=== PATIENT | female | born 1945 | race Caucasian/White ===

== ENCOUNTER 2018-01-17 16:32 | Emergency (ER) | payer MEDICARE, OTHER ==
[2018-01-17 17:07] VITALS: BP 183/66
--- NOTE | 2018-01-17 17:40 | UC ---
Knee Pain HPI - HPI Summary HPI Summary: 72-year-old female with history of hypertension presents with gradual onset right-sided lateral knee and lateral foot and ankle pain after a fall she suffered approximately 5 days prior. Has noticed gradually worsening pain, mild swelling of the right ankle. Pain reproduced with movement and weightbearing. Denies any recent surgeries or immobilization. Patient has been walking normally. Denies any chest pain shortness of breath. No history of blood clots in the past. Pain is worst in the lateral right ankle along the right lateral malleolus, nonradiating, described as sharp, reproducible with palpation behind the right lateral malleolus. Denies any recent fevers. - History of Current Complaint Chief Complaint: UCLowerExtremity Stated Complaint: RIGHT KNEE PAIN Time Seen by Provider: 01/17/18 17:13 Hx Last Menstrual Period: N/A Pain Intensity: 3 - Allergies/Home Medications Allergies/Adverse Reactions: Allergies Allergy/AdvReac Type Severity Reaction Status Date / Time Penicillins Allergy Severe Rash Verified 01/17/18 17:01 Home Medications: Home Medications Esomeprazole Magnesium [Nexium 24Hr] 20 mg PO DAILY 01/17/18 [History Confirmed 01/17/18] PMH/Surg Hx/FS Hx/Imm Hx - Additional Past Medical History Additional PMH: Hypertension - Surgical History Surgical History: Yes Surgery Procedure, Year, and Place: STENT PLACEMENT X 3. CAROTID ARTERY SX. CHOLECYSTECTOMY. HYSTERECTOMY. RIGHT KNEE SX--[facility] - Family History Known Family History: Positive: Hypertension - Social History Alcohol Use: Rare Substance Use Type: None Smoking Status (MU): Former Smoker Have You Smoked in the Last Year: No When Did the Patient Quit Smoking/Using Tobacco: 2004 - Immunization History Most Recent Influenza Vaccination: 2014 Most Recent Pneumonia Vaccination: 2014 Hx Tetanus, Diphtheria Vaccination: Yes Vaccination Up to Date: Yes Review of Systems Musculoskeletal: Other: - Right-sided knee and ankle and foot pain as described in history of present illness All Other Systems Reviewed And Are Negative: Yes Physical Exam - Summary Physical Exam Summary: Gen: alert, in no acute distress HEENT: EOMI, normocephalic, atruamatic Neck: supple, no masses CV: Normal s1 s2, no murmurs Resp: normal breath sounds b/l GI: no tenderness, no masses Musculoskeletal: normal ROM all 4 extremities. Superficial skin overlying the right lateral knee slightly erythematous and around distribution with central scab overlying superficial abrasion. Round total diameter approximately 5 cm. Diffuse swelling of the ankle with tenderness reproduced with palpation of the right posterior lateral malleolus. Distal neurovascular exam intact, normal strength and sensation of all toes. Normal distal pulses. Skin: no rash Lymph: no lymphadenopathy Psych: appropriate affect, oriented Triage Information Reviewed: Yes Vital Signs: Initial Vital Signs Temp 36.8 C 01/17/18 16:55 Pulse 83 01/17/18 16:55 Resp 16 01/17/18 16:55 BP 183/66 01/17/18 16:55 Pulse Ox 96 01/17/18 16:55 Diagnostics - Radiology x-ray of the knee, ankle, and foot Xray Interpretation: No Acute Changes Radiology Interpretation Completed By: ED Physician, Radiologist Knee Pain Course/Dx - Course Course Of Treatment: X-rays reveal no acute fractures or dislocations, possible questionable developing early cellulitis along the anterior surface of the right knee. Normal range of motion. Instructed to follow up with primary care physician and to report to the emergency department for any worsening or concerning symptoms. Agrees to and understands discharge instructions. - Differential Dx/Diagnosis Provider Diagnoses: Cellulitis. Right ankle pain Discharge - Sign-Out/Discharge Documenting (check all that apply): Patient Departure All imaging exams completed and their final reports reviewed: Yes - Discharge Plan Condition: Stable Disposition: HOME Prescriptions: Cephalexin CAP* [Keflex CAP*] 500 mg PO QID #28 cap Patient Education Materials: Cellulitis (DC) Referrals: Tiffanie Tamayo MD [Primary Care Provider] - Additional Instructions: PLEASE FINISH FULL COURSE OF ANTIBIOTIC PLEASE MAKE AN APPOINTMENT TO BE SEEN BY A PRIMARY CARE DOCTOR WITHIN 1 WEEK PLEASE REPORT TO THE ER FOR ANY WORSENING OR CONCERNING SYMPTOMS - Billing Disposition and Condition Condition: STABLE Disposition: Home
--- NOTE | 2018-01-17 17:48 | RAD ---
Indication: RIGHT foot and knee pain for 5 days post fall. Comparison: No relevant prior exams available on the [facility] for comparison. Technique: AP, lateral, and oblique views RIGHT foot. REPORT AND IMPRESSION: #. Negative for fracture or articular malalignment. #. 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 #. Moderate Achilles tendon insertion and plantar fascia origin bone spurs. #. Diffuse soft tissue swelling.
--- NOTE | 2018-01-17 17:50 | RAD ---
Indication: RIGHT knee pain post fall 5 days ago. Comparison: June 02, 2009 MRI. Technique: RIGHT knee: AP and lateral views. Report: Negative for joint effusion, fracture, or malalignment. Osteoarthritis with moderate medial joint space narrowing and mild partial flattening of the articular surfaces. Peripheral vascular calcifications. Unremarkable soft tissue contours. IMPRESSION: #. No radiographic evidence for traumatic RIGHT knee injury. #. Moderately severe osteoarthritis.
--- NOTE | 2018-01-17 17:56 | RAD ---
INDICATION: Right ankle injury. TECHNIQUE: 3 views of the right ankle were obtained. FINDINGS: There is diffuse soft tissue swelling. The bones are normal alignment. No fracture is seen. IMPRESSION: DIFFUSE SOFT TISSUE SWELLING, NO FRACTURE IS SEEN.
== END 2018-01-17 18:29 | disposition home or self-care (01) ==
LOC: UCCORT 16:32
DX: L03.115 Cellulitis of right lower limb (principal); M25.571 Pain in right ankle and joints of right foot; I10 Essential (primary) hypertension; Z88.0 Allergy status to penicillin; Z87.891 Personal history of nicotine dependence
CPT/HCPCS: 99213; G0463

== ENCOUNTER 2019-02-20 16:57 | Emergency (ER) | payer MEDICARE ==
[2019-02-20 17:10] VITALS: BP 145/51
[2019-02-20] MEDS ORDERED: Aspirin 81 mg CHEW TAB* 81 MG TAB.CHEW PO ONE (17:25)
--- NOTE | 2019-02-20 17:25 | UC ---
Cardiac HPI - HPI Summary HPI Summary: 74 yo female with known CAD presents here with mild/hard to describe SSCP No SOB No n/v/d occasional dizziness no abd pain She has been feeling out of sorts lately with fatigue/ post nasal drip/lassitude - History of Current Complaint Chief Complaint: UCChestPain Stated Complaint: LEFT SIDE COMPLAINT Time Seen by Provider: 02/20/19 17:12 Hx Obtained From: Patient Hx Last Menstrual Period: N/A Onset/Duration: Gradual Onset, Lasting Hours Timing: Constant Initial Severity: Mild Current Severity: Mild Pain Intensity: 1 Chest Pain Location: Mid Sternal - radiates to left infra scapular region Character: Pressure/Squeezing Aggravating Factor(s): Nothing Alleviating Factor(s): Nothing Associated Signs & Symptoms: Positive: Chest Pain, Dizziness. Negative: Vision Changes, Anxiety, Recent Stress, Headaches, Numbness, Tingling, Weakness, SOB, Swelling, Syncope, Fever, Diaphoresis, Nausea/Vomiting, Palpitations, Cough, Hemoptysis, Back Pain, Abdominal Pain, Calf Pain/Swelling - Allergy/Home Medications Allergies/Adverse Reactions: Allergies Allergy/AdvReac Type Severity Reaction Status Date / Time Penicillins Allergy Severe Rash Verified 02/20/19 17:08 Home Medications: Home Medications Aspirin EC TAB* [Ecotrin EC Low Dose 81 MG*] 1 tab DAILY 02/20/19 [History Confirmed 02/20/19] Hydrochlorothiazide TAB* [Hydrodiuril TAB*] 25 mg PO DAILY 02/20/19 [History Confirmed 02/20/19] Pantoprazole TAB * [Protonix TAB*] 1 tab BID 02/20/19 [History Confirmed ] Spironolactone TAB* [Aldactone TAB 25 MG*] 2 tab DAILY 02/20/19 [History Confirmed 02/20/19] Verapamil SR CAP* [Calan Sr CAP*] 1 tab BID 02/20/19 [History Confirmed 02/20/19 ] metFORMIN* [Glucophage 1000 MG TAB *] 1 tab BID 02/20/19 [History Confirmed 07/10] PMH/Surg Hx/FS Hx/Imm Hx Endocrine History: Diabetes, Dyslipidemia Cardiovascular History: Cardiac Disease, Hypertension - Surgical History Surgical History: Yes Surgery Procedure, Year, and Place: STENT PLACEMENT X 3. CAROTID ARTERY SX. CHOLECYSTECTOMY. HYSTERECTOMY. RIGHT KNEE SX--[facility]N [facility]ISCUS - Family History Known Family History: Positive: Cardiac Disease, Hypertension, Diabetes - Social History Alcohol Use: Rare Substance Use Type: None Smoking Status (MU): Former Smoker Have You Smoked in the Last Year: No When Did the Patient Quit Smoking/Using Tobacco: 2004 - Immunization History Most Recent Influenza Vaccination: 2014 Most Recent Pneumonia Vaccination: 2014 Hx Tetanus, Diphtheria Vaccination: Yes Vaccination Up to Date: Yes Review of Systems All Other Systems Reviewed And Are Negative: Yes Constitutional: Positive: Fatigue Skin: Positive: Negative Eyes: Positive: Negative ENT: Positive: Negative Respiratory: Positive: Negative Cardiovascular: Positive: Chest Pain Gastrointestinal: Positive: Negative Genitourinary: Positive: Negative Motor: Positive: Negative Neurovascular: Positive: Negative Musculoskeletal: Positive: Negative Neurological: Positive: Negative Psychological: Positive: Negative Physical Exam Triage Information Reviewed: Yes Appearance: Well-Appearing, No Pain Distress, Well-Nourished Vital Signs: Initial Vital Signs Temp 96.7 F 02/20/19 17:02 Pulse 62 02/20/19 17:02 Resp 16 02/20/19 17:02 BP 145/51 02/20/19 17:02 Pulse Ox 95 02/20/19 17:02 Vital Signs Reviewed: Yes Eyes: Positive: Conjunctiva Clear ENT: Positive: Hearing grossly normal. Negative: Nasal congestion, Nasal drainage, Trismus, Muffled voice, Hoarse voice, Dental tenderness, Sinus tenderness Neck: Positive: Supple, Nontender, No Lymphadenopathy Respiratory: Positive: Lungs clear, Normal breath sounds, No respiratory distress, No accessory muscle use. Negative: Chest non-tender - tender sternum Cardiovascular: Positive: RRR, No Murmur Abdomen Description: Positive: Nontender, No Organomegaly, Soft. Negative: Distended, Guarding Bowel Sounds: Positive: Present Musculoskeletal: Positive: ROM Intact, No Edema Neurological: Positive: Alert Psychological Exam: Normal Skin Exam: Normal Diagnostics - EKG Cardiac Rate: Bradycardia Cardiac Rhythm: Sinus: Normal Ectopy: PACs ST Segment: Normal - Assessment/Plan Course Of Treatment: I advised pt seek evaluation in ER She declines EMS transfer I spoke to Maria Eugenia Youngblood NP Pt to [facility] - Clinical Impression Provider Diagnosis: Chest pain of uncertain etiology Discharge ED - Sign-Out/Discharge Documenting (check all that apply): Patient Departure All imaging exams completed and their final reports reviewed: No Studies - Discharge Plan Condition: Stable Disposition: TRANS HIGHER LVL OF CARE FAC Referrals: Tiffanie Tamayo MD [Medical Doctor] - Additional Instructions: They are expecting you at the ER ([facility]) I spoke to Maria Eugenia Youngblood [employer] ARCHITECT - Billing Disposition and Condition Condition: STABLE Disposition: Trans Higher Lvl of Care Fac
--- OUTSIDE RECORDS SUMMARY | 2019-02-20 17:37 | XMS REPORT | Continuity of Care Document ---
:1945 External Reference #:[id number] Author Name Justine Rooney, MSN, [employer] Address [address] [place] [address] Care Team Providers Name Role Phone Eze Lamas III, MD - Care Team Information Digital Imager [phone] Ophthalmology Jamar Mcduffie MD - Family Medicine Care Team Information Digital Imager Problems Active Problems Provider Date Localized, primary osteoarthritis Jeremiah Santiago MD Onset: 06/08/2011 Note: Document: 01/17/18 - R Knee Xray Peripheral vascular disease Lori Martinez ANP Onset: 08/18/2011 Benign essential hypertension Lori Martinez ANP Onset: 08/18/2011 Chronic pulmonary heart disease Lori Martinez ANP Onset: 08/18/2011 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 Pure hypercholesterolemia Dameon Bauman MD Onset: 09/05/2017 Obesity Lori Martinez ANP Onset: 02/16/2015 Diaphragmatic hernia Fan Girard MD Onset: 02/10/2017 Chronic obstructive lung disease Jamar Mcduffie MD Onset: 09/17/2018 Allergic rhinitis Jamar Mcduffie MD Onset: 09/17/2018 Gastro-esophageal reflux disease with Jamar Mcduffie MD Onset: 09/17/2018 esophagitis Hyperlipidemia Jamar Mcduffie MD Onset: 09/17/2018 Carotid artery occlusion Tez Szymanski M.D., Onset: 01/15/2019 FACC Type II diabetes mellitus uncontrolled Tez Szymanski M.D., Onset: [facility] Social History Type Date Description Comments Sex Unknown Tobacco Use Start: Unknown End: Quit Unknown Cigarette Use Pack Years - 42 Smoking Status Reviewed: 01/15/19 Quit Smokeless Tobacco Never Used Smokeless Tobacco ETOH Use Rarely consumes alcohol Tobacco Use Start: Unknown End: Patient is a former smoker Unknown Recreational Drug Use Denies Drug Use Tobacco Use Start: Unknown Quit 01/2008 Allergies, Adverse Reactions, Alerts Active Allergies Reaction Severity Comments Date Penicillins Hives 06/03/2011 Lisinopril angioedema 10/25/2018 Amlodipine edema and cramps 01/15/2019 Medications Active Medications SIG Qnty Indications Ordering Date Provider Verapamil HCL ER 1 by mouth twice 180caps I10 Rooney, Justine 180mg Caps ER a day Jocelyn, Monse 24HR MSN, [employer] Metformin HCL take one tablet 180tabs E11.65 Jamar Mcduffie, 1000mg Tablets by mouth twice a MD 9 day Incruse Ellipta take 1 puff once 30units Layo Duke, 62.5mcg/Inh daily. 9 Aerosol Spironolactone 2 by mouth every 180tabs Nevin, Justine 25mg Tablets day Monse Banks MSN, [employer] Hydrochlorothiazide 1 by mouth every 90tabs I10 Nessa, 25mg day Monse Bueno M.D., [facility] Accu-Chek Compact Plus as directed to 1units E11.65 Becca Mojica, Care Kit check blood PNP-BC, [employer], 9 Kit sugar one to two Ibclc times a day Accu-Chek Compact Plus to check glucose 102units E11.65 Becca Mojica, Strips one to two times PNP-BC, [employer], 9 a day Ibclc Accu-Chek Fastclix to check sugar 102units E11.65 Becca Mojica, Lancets one to two times PNP-BC, [employer], 9 Misc a day Ibclc Alcohol Prep for use with 100units E11.65 Becca Mojica, 70% Pads glucometer PNP-BC, [employer], 9 Ibclc Atorvastatin Calcium take 1 tablet by 90tabs E78.2 Nessa, 20mg mouth at bedtime Tez Mcguire, 7 Tablets Raphael.DJason, [facility] Nitrostat 1. tab s.l. as 25tabs I25.10 Dameon Bauman, 0.4mg Tablets Sub needed every 5 MD 6 min. Clopidogrel Bisulfate take 1 tablet by 90tabs Dameon Bauman, 75mg mouth once daily MD 5 Tablets Mariangel Aspirin Ec Low Dose 1 tablet daily Unknown 81mg 0 Tablets Pantoprazole Sodium 1 by mouth bid 90tabs Joseph, 40mg Biswarup, MD 0 Tablets Carvedilol 1 by mouth twice 180tabs Becca Mojica, 25mg Tablets a day PNP-BC, [employer], 0 Ibclc Advair HFA inhale 2 puffs 36units Layo Duke, 115-21mcg/Act twice a day MD 0 Aerosol Vitamin B Complex 1 by mouth every Unknown Tablets day 0 Vitamin D 1 by mouth every Unknown 2000Unit Capsules day 0 Ventolin HFA Take 2 puffs 8gm Layo Duke, 108(90Base) every 6 hours as MD 0 mcg/Act Aerosol needed for shortness of breath. History Medications Verapamil HCL ER 1 by mouth 30caps I10 Tez Szymanski 01/15/2019 - 180mg Caps ER every day Landy Mcguire, [facility] 02/12/2019 24HR Spironolactone 1 by mouth 90tabs Tez Szymanski 12/13/2018 - 25mg Tablets every day Landy Mcguire, [facility] 12/27/2018 Amlodipine Besylate 1 by mouth 30tabs I10 Tez Szymanski 12/10/2018 - 10mg every day Landy Mcguire, [facility] 01/15/2019 Tablets Amlodipine Besylate 1 by mouth 30tabs I10 Tez Szymanski 12/06/2018 - 5mg Tablets every day Landy Mcguire, [facility] 12/10/2018 Lisinopril-Hydrochlorothi 1 by mouth 180tabs I10 Becca Mojica, 2018 - azide twice a day PNP-BC, [employer], 11/20/2018 20-12.5mg Tablets Ibclc Hydrochlorothiazide 1 by mouth 30tabs I10 Tez Szymanski 11/02/2018 - 25mg every day Landy Mcguire, [facility] 11/07/2018 Tablets Prednisone Start with 6 21tabs R22.1 Sandhya Stafford, 10/24/2018 - 10mg Tablets tabs po once [employer] Unknown daily and decrease by 1 tab per day until gone. Benzonatate 1 cap by mouth 30caps J44.1 Clune, 10/04/2018 - 100mg Capsules three times a Ashleynifersudarshan, 10/24/2018 day cough [employer] Prednisone start at 6 21tabs J44.1 Clune, 10/04/2018 - 10mg Tablets tabs by mouth Blossomfersudarshan, 10/11/2018 every day and [employer] decrease by one tab each day until gone HM Cetirizine HCL Once daily PO 90tabs J30.89 Layo Duke MD 09/12/2018 - 10mg Tablets 09/17/2018 Immunizations CPT Code Status Date Vaccine Lot # [id number] Given 2018 Influenza Virus Vaccine, Quadrivalent, 36 Mos+, .5ML [id number] Given 02/25/2017 Influenza Virus Vaccine [place] I[place] [id number] Given 11/05/1996 Tetnus Injection Vital Signs Date Vital Result Comment 02/12/2019 11:01am BP Systolic Sitting Right Arm 198 mmHg BP Diastolic Sitting Right Arm 64 mmHg Heart Rate 66 /min Respiratory Rate 18 /min Height 62 inches 5'2" Weight 204.00 lb BMI (Body Mass Index) 37.3 kg/m2 BSA (Body Surface Area) 1.93 m2 [place] body weight in kilograms 50 kg O2 % BldC Oximetry 96 % Ejection Fraction 65% 01/15/2019 9:39am BP Systolic Sitting Left Arm 178 mmHg BP Diastolic Sitting Left Arm 72 mmHg Heart Rate 71 /min Respiratory Rate 20 /min Height 62 inches 5'2" Weight 204.00 lb BMI (Body Mass Index) 37.3 kg/m2 BSA (Body Surface Area) 1.93 m2 [place] body weight in kilograms 50 kg O2 % BldC Oximetry 95 % Results Test Date Facility Test Result H/L Range Note Basic Metabolic 12/20/2018 [facility] Glucose 135 mg/dL High 74-106 1 Panel [address] [place] [id number] [phone] BUN 20 mg/dL High 7-18 Creatinine 0.8 mg/dL Normal 0.6-1.3 Glom Filtration Rate, Estimate >60 mL/min >60 If >60 mL/min >60 2 BUN/Creat 25.0 ratio Sodium 139 mmol/L Normal 136-145 Potassium 3.8 mmol/L Normal 3.5-5.1 Chloride 103 mmol/L Normal 98-107 Carbon Dioxide 29 mmol/L Normal 21-32 Anion Gap 7 mEq/L Low 8-16 Calcium 8.9 mg/dL Normal 8.5-10.1 Basic Metabolic Panel 11/02/2018 [facility] Glucose 138 mg/dL High 74-106 3 [address] [place], [place] [id number] [phone] BUN 18 mg/dL Normal 7-18 Creatinine 0.9 mg/dL Normal 0.6-1.3 Glom Filtration Rate, Estimate >60 mL/min >60 If >60 mL/min >60 4 BUN/Creat 20.0 ratio Sodium 138 mmol/L Normal 136-145 Potassium 4.1 mmol/L Normal 3.5-5.1 Chloride 101 mmol/L Normal 98-107 Carbon Dioxide 31 mmol/L Normal 21-32 Anion Gap 6 mEq/L Low 8-16 Calcium 8.4 mg/dL Low 8.5-10.1 CBC W/Automated 10/26/2018 [facility] White Blood 6.9 K/uL Normal 3.1-10.7 5 Diff [address] [facility] [place] [address] [phone] Red Blood Count 3.88 M/uL Low 3.90-5.40 Hemoglobin 10.6 gm/dL Low 11.6-15.8 Hematocrit 32.1 % Low 36.0-46.1 Mean Cell Volume 82.7 fl Normal 80.9-99.0 Mean Corpuscular HGB 27.3 pg Normal 25.9-32.7 Mean Corpuscular HGB Conc 33.0 g/dL Normal 30.8-34.3 Platelet Count 137 K/uL Low 155-360 Red Cell Distri Width SD 38.7 fl Normal 36-47 Red Cell Distri Width %CV 13.0 % Normal 11.7-14.4 Mean Platelet Volume 9.9 fl Normal 8.9-12.4 Neut% 86.6 % High 40.4-72.8 Lymph % 9.5 % Low 20.0-42.0 [place] % 3.2 % Low 4.3-13.2 Eo% 0.0 % Normal 0.0-6.6 Bas% 0.0 % Normal 0.0-1.1 Immature Grans 0.7 % Normal 0.0-5.0 NRBC % 0.0 /100WBC < 10/ 100 WBC Neut# 5.99 K/uL Normal 1.8-7.0 Lymph # 0.66 K/uL Low 1.0-4.0 [place] # 0.22 K/uL Low 0.3-0.9 Eos # 0.00 K/uL Normal 0.0-0.5 Baso # 0.00 K/uL Normal 0.0-0.1 Immature Grans Absolute 0.05 K/uL NRBC # 0.00 K/uL Basic Metabolic Panel 10/26/2018 [facility] Glucose 247 mg/dL High 74-106 [address] [place] [address] [phone] BUN 18 mg/dL Normal 7-18 Creatinine 1.0 mg/dL Normal 0.6-1.3 Glom Filtration Rate, Estimate 58 mL/min >60 If >60 mL/min >60 6 BUN/Creat 18.0 ratio Sodium 136 mmol/L Normal 136-145 Potassium 3.5 mmol/L Normal 3.5-5.1 Chloride 101 mmol/L Normal 98-107 Carbon Dioxide 27 mmol/L Normal 21-32 Anion Gap 8 mEq/L Normal 8-16 Calcium 7.7 mg/dL Low 8.5-10.1 Glycohemoglobin 10/26/2018 [facility] Glycohemoglobin 7.7 % High 4.2-6.3 [address] (A1c) [place] [address] [phone] eAG 174 mg/dL Laboratory test 10/26/2018 [facility] Lyme Total < 0.91 0.00-0.90 [address] AB/[place] [address] WB [phone] CBC W/Automated 10/25/2018 [facility] White Blood 6.4 K/uL Normal 3.1-10.7 [address] [place], [place] [id number] [phone] Red Blood Count 4.75 M/uL Normal 3.90-5.40 Hemoglobin 13.4 gm/dL Normal 11.6-15.8 Hematocrit 39.3 % Normal 36.0-46.1 Mean Cell Volume 82.7 fl Normal 80.9-99.0 Mean Corpuscular HGB 28.2 pg Normal 25.9-32.7 Mean Corpuscular HGB Conc 34.1 g/dL Normal 30.8-34.3 Platelet Count 143 K/uL Low 155-360 Red Cell Distri Width SD 40.1 fl Normal 36-47 Red Cell Distri Width %CV 13.3 % Normal 11.7-14.4 Mean Platelet Volume 9.7 fl Normal 8.9-12.4 Neut% 86.6 % High 40.4-72.8 Lymph % 10.5 % Low 20.0-42.0 [place] % 2.0 % Low 4.3-13.2 Eo% 0.2 % Normal 0.0-6.6 Bas% 0.2 % Normal 0.0-1.1 Immature Grans 0.5 % Normal 0.0-5.0 NRBC % 0.0 /100WBC < 10/ 100 WBC Neut# 5.55 K/uL Normal 1.8-7.0 Lymph # 0.67 K/uL Low 1.0-4.0 [place] # 0.13 K/uL Low 0.3-0.9 Eos # 0.01 K/uL Normal 0.0-0.5 Baso # 0.01 K/uL Normal 0.0-0.1 Immature Grans Absolute 0.03 K/uL NRBC # 0.00 K/uL Comprehensive Metabolic 10/25/2018 [facility] Glucose 231 mg/dL High 74-[address] [place] [address] [phone] BUN 18 mg/dL Normal 7-18 Creatinine 1.3 mg/dL Normal 0.6-1.3 Glom Filtration Rate, Estimate 43 mL/min >60 If 52 mL/min >60 10 BUN/Creat 13.8 ratio Sodium 131 mmol/L Low 136-145 Potassium 3.9 mmol/L Normal 3.5-5.1 Chloride 94 mmol/L Low 98-107 Carbon Dioxide 28 mmol/L Normal 21-32 Anion Gap 9 mEq/L Normal 8-16 Calcium 8.2 mg/dL Low 8.5-10.1 Total Protein 7.4 g/dL Normal 6.4-8.2 Albumin 3.2 g/dL Low 3.4-5.0 Globulin 4.2 g/dL Normal 1.9-4.3 Alb/Glob 0.8 ratio Bilirubin,Total 0.9 mg/dL Normal 0.2-1.0 Sgot/Ast 15 U/L Normal 15-37 SGPT/Alt 22 U/L Normal 12-78 Alkaline Phosphatase 38 U/L Low 45-117 Laboratory test 10/25/2018 [facility] Lipase 43 U/L Low 56-[address] [place] [address] [phone] CBC W/Automated 10/24/[address] [facility] [address] White Blood 6.2 K/uL Normal 3.1-10.7 [address] [place] [address] [phone] Red Blood Count 4.77 M/uL Normal 3.90-5.40 Hemoglobin 13.1 gm/dL Normal 11.6-15.8 Hematocrit 40.1 % Normal 36.0-46.1 Mean Cell Volume 84.1 fl Normal 80.9-99.0 Mean Corpuscular HGB 27.5 pg Normal 25.9-32.7 Mean Corpuscular HGB Conc 32.7 g/dL Normal 30.8-34.3 Platelet Count 141 K/uL Low 155-360 Red Cell Distri Width SD 41.1 fl Normal 36-47 Red Cell Distri Width %CV 13.4 % Normal 11.7-14.4 Mean Platelet Volume 10.4 fl Normal 8.9-12.4 Neut% 73.0 % High 40.4-72.8 Lymph % 18.5 % Low 20.0-42.0 [place] % 6.7 % Normal 4.3-13.2 Eo% 1.3 % Normal 0.0-6.6 Bas% 0.2 % Normal 0.0-1.1 Immature Grans 0.3 % Normal 0.0-5.0 NRBC % 0.0 /100WBC < 10/ 100 WBC Neut# 4.50 K/uL Normal 1.8-7.0 Lymph # 1.14 K/uL Normal 1.0-4.0 [place] # 0.41 K/uL Normal 0.3-0.9 Eos # 0.08 K/uL Normal 0.0-0.5 Baso # 0.01 K/uL Normal 0.0-0.1 Immature Grans Absolute 0.02 K/uL NRBC # 0.00 K/uL Comprehensive Metabolic 10/24/[address] [facility] [employer] [address] Glucose 120 mg/dL High 74-106 Panel [address] [place] [address] [phone] BUN 14 mg/dL Normal 7-18 Creatinine 1.1 mg/dL Normal 0.6-1.3 Glom Filtration Rate, Estimate 52 mL/min >60 If >60 mL/min >60 12 BUN/Creat 12.7 ratio Sodium 135 mmol/L Low 136-145 Potassium 3.5 mmol/L Normal 3.5-5.1 Chloride 96 mmol/L Low 98-107 Carbon Dioxide 29 mmol/L Normal 21-32 Anion Gap 10 mEq/L Normal 8-16 Calcium 8.3 mg/dL Low 8.5-10.1 Total Protein 7.3 g/dL Normal 6.4-8.2 Albumin 3.3 g/dL Low 3.4-5.0 Globulin 4.0 g/dL Normal 1.9-4.3 Alb/Glob 0.8 ratio Bilirubin,Total 0.7 mg/dL Normal 0.2-1.0 Sgot/Ast 16 U/L Normal 15-37 SGPT/Alt 22 U/L Normal 12-78 Alkaline Phosphatase 37 U/L Low 45-117 LDL Cholesterol 09/17/[address] Cholesterol 158 mg/dL <200 13, 14 [address] [place] [address] [phone] Triglycerides 82 mg/dL <150 15 HDL Cholesterol 56 mg/dL >40 16 LDL-Cholesterol 86 mg/dL < 100 17 Laboratory test 09/09/2018 [facility] Troponin-I < 0.015 18, [address] ng/mL [place], [place] [id number] [phone] Basic Metabolic 09/09/2018 [facility] Glucose 128 mg/dL High 74-[address] [place] [address] [phone] BUN 18 mg/dL Normal 7-18 Creatinine 0.9 mg/dL Normal 0.6-1.3 Glom Filtration Rate, Estimate >60 mL/min >60 If >60 mL/min >60 20 BUN/Creat 20.0 ratio Sodium 136 mmol/L Normal 136-145 Potassium 3.5 mmol/L Normal 3.5-5.1 Chloride 99 mmol/L Normal 98-107 Carbon Dioxide 30 mmol/L Normal 21-32 Anion Gap 7 mEq/L Low 8-16 Calcium 8.7 mg/dL Normal 8.5-10.1 CBC W/Automated 09/09/2018 [facility] White Blood 6.2 K/uL Normal 3.1-10.[address] [place] [address] [phone] Red Blood Count 4.29 M/uL Normal 3.90-5.40 Hemoglobin 11.9 gm/dL Normal 11.6-15.8 Hematocrit 36.0 % Normal 36.0-46.1 Mean Cell Volume 83.9 fl Normal 80.9-99.0 Mean Corpuscular HGB 27.7 pg Normal 25.9-32.7 Mean Corpuscular HGB Conc 33.1 g/dL Normal 30.8-34.3 Platelet Count 135 K/uL Low 155-360 Red Cell Distri Width SD 41.7 fl Normal 36-47 Red Cell Distri Width %CV 13.6 % Normal 11.7-14.4 Mean Platelet Volume 10.3 fl Normal 8.9-12.4 Neut% 60.1 % Normal 40.4-72.8 Lymph % 28.0 % Normal 20.0-42.0 [place] % 8.8 % Normal 4.3-13.2 Eo% 2.3 % Normal 0.0-6.6 Bas% 0.5 % Normal 0.0-1.1 Immature Grans 0.3 % Normal 0.0-5.0 NRBC % 0.0 /100WBC < 10/ 100 WBC Neut# 3.74 K/uL Normal 1.8-7.0 Lymph # 1.74 K/uL Normal 1.0-4.0 [place] # 0.55 K/uL Normal 0.3-0.9 Eos # 0.14 K/uL Normal 0.0-0.5 Baso # 0.03 K/uL Normal 0.0-0.1 Immature Grans Absolute 0.02 K/uL NRBC # 0.00 K/uL Laboratory test 09/09/2018 [facility] Troponin-I < 0.015 [address] ng/[place] [address] [phone] Comprehensive 09/08/2018 [facility] Glucose 132 mg/dL High 74-106 Metabolic Panel [address] [place] [address] [phone] BUN 18 mg/dL Normal 7-18 Creatinine 1.1 mg/dL Normal 0.6-1.3 Glom Filtration Rate, Estimate 52 mL/min >60 If >60 mL/min >60 22 BUN/Creat 16.3 ratio Sodium 136 mmol/L Normal 136-145 Potassium 3.7 mmol/L Normal 3.5-5.1 Chloride 98 mmol/L Normal 98-107 Carbon Dioxide 30 mmol/L Normal 21-32 Anion Gap 8 mEq/L Normal 8-16 Calcium 8.7 mg/dL Normal 8.5-10.1 Total Protein 7.9 g/dL Normal 6.4-8.2 Albumin 3.7 g/dL Normal 3.4-5.0 Globulin 4.2 g/dL Normal 1.9-4.3 Alb/Glob 0.9 ratio Bilirubin,Total 0.8 mg/dL Normal 0.2-1.0 Sgot/Ast 21 U/L Normal 15-37 SGPT/Alt 25 U/L Normal 12-78 Alkaline Phosphatase 44 U/L Low 45-117 Laboratory test finding 09/08/2018 [facility] Lipase 76 U/L Normal 56-[address] [place] [address] [phone] Troponin-I < 0.015 ng/mL 23 CBC W/Automated 09/08/2018 [facility] White Blood 6.8 K/uL Normal 3.1-10.7 Diff [address] [place] [address] [phone] Red Blood Count 4.66 M/uL Normal 3.90-5.40 Hemoglobin 13.1 gm/dL Normal 11.6-15.8 Hematocrit 39.0 % Normal 36.0-46.1 Mean Cell Volume 83.7 fl Normal 80.9-99.0 Mean Corpuscular HGB 28.1 pg Normal 25.9-32.7 Mean Corpuscular HGB Conc 33.6 g/dL Normal 30.8-34.3 Platelet Count 164 K/uL Normal 155-360 Red Cell Distri Width SD 41.3 fl Normal 36-47 Red Cell Distri Width %CV 13.7 % Normal 11.7-14.4 Mean Platelet Volume 9.7 fl Normal 8.9-12.4 Neut% 64.3 % Normal 40.4-72.8 Lymph % 24.9 % Normal 20.0-42.0 [place] % 8.0 % Normal 4.3-13.2 Eo% 1.8 % Normal 0.0-6.6 Bas% 0.4 % Normal 0.0-1.1 Immature Grans 0.6 % Normal 0.0-5.0 NRBC % 0.0 /100WBC < 10/ 100 WBC Neut# 4.36 K/uL Normal 1.8-7.0 Lymph # 1.69 K/uL Normal 1.0-4.0 [place] # 0.54 K/uL Normal 0.3-0.9 Eos # 0.12 K/uL Normal 0.0-0.5 Baso # 0.03 K/uL Normal 0.0-0.1 Immature Grans Absolute 0.04 K/uL NRBC # 0.00 K/uL Aot Request 09/08/2018 [facility] Aot Request Test(s) added [address] [place] [address] [phone] Tests to be added: lipase Laboratory test finding 09/08/2018 [facility] Troponin-I < 0.015 ng/mL [address] [place] [address] [phone] 1 I10 2 Note: Persistent reduction for 3 months or more in an eGFR <60 mL/min/1.73 m2 defines CKD. Patients with eGFR values >/=60 mL/min/1.73 m2 may also have CKD if evidence of persistent proteinuria is present. The original MDRD equation for estimated GFR is not valid for patients less than 18 years of age. Additional information may be found at www.[email or web address]. 3 I10 [id number] 4 Note: Persistent reduction for 3 months or more in an eGFR <60 mL/min/1.73 m2 defines CKD. Patients with eGFR values >/=60 mL/min/1.73 m2 may also have CKD if evidence of persistent proteinuria is present. The original MDRD equation for estimated GFR is not valid for patients less than 18 years of age. Additional information may be found at www.[email or web address]. 5 ANGIOEDEMA 6 Note: Persistent reduction for 3 months or more in an eGFR <60 mL/min/1.73 m2 defines CKD. Patients with eGFR values >/=60 mL/min/1.73 m2 may also have CKD if evidence of persistent proteinuria is present. The original MDRD equation for estimated GFR is not valid for patients less than 18 years of age. Additional information may be found at www.kdoqi.org. 7 Elevated levels of HbA1c suggest the need for more aggressive treatment of glycemia. The [place] [employer] recommends that a primary goal of therapy should be a HbA1c of <7% and that physicians should re-evaluate the treatment regimen in patients with HbA1c values consistently >8%. 8 Negative <0.91 Equivocal 0.91 - 1.09 Positive >1.09 Performed at: RN - [facility] [address] [id number] Phlebotomy Manager: Corrina Palma MD, Phone: [phone] LIPS AND TONGUE SWELLING AND RASH 10 Note: Persistent reduction for 3 months or more in an eGFR <60 mL/min/1.73 m2 defines CKD. Patients with eGFR values >/=60 mL/min/1.73 m2 may also have CKD if evidence of persistent proteinuria is present. The original MDRD equation for estimated GFR is not valid for patients less than 18 years of age. Additional information may be found at www.kdoqi.org. 11 R11.281 12 Note: Persistent reduction for 3 months or more in an eGFR <60 mL/min/1.73 m2 defines CKD. Patients with eGFR values >/=60 mL/min/1.73 m2 may also have CKD if evidence of persistent proteinuria is present. The original MDRD equation for estimated GFR is not valid for patients less than 18 years of age. Additional information may be found at www.kdoqi.org. 13 E78.5 14 Reference Guidelines*: Desirable: ........... < 200 mg/dL Borderline High: ..... 200-239 mg/dL High: ................ >= 240 mg/dL * The National Cholesterol Education Program (NCEP) 15 Reference Guidelines*: Normal: ............. < 150 mg/dL Borderline High: .... 150-199 mg/dL High: ............... 200-499 mg/dL Very High: .......... > 500 mg/dL * Source: National Cholesterol Education Program (NCEP) 16 Reference Guidelines*: Low HDL: ..... < 40 mg/dL Normal: ..... 40-60 mg/dL Desirable: ... > 60 mg/dL *The National Cholesterol Education Program(NCEP) 17 Reference Guidelines*: Optimal:........... <100 mg/dL Near Optimal....... 100-129 mg/dL Borderline High.... 130-159 mg/dL High............... 160-189 mg/dL Very High.......... >=190 mg/dL * Source: National Cholesterol Education Program (NCEP) 18 CHEST PAIN 19 0.0 - 0.045 ng/mL: Normal 0.046 - 0.5 ng/mL: Suggestive 0.6 - 1.5 ng/mL: Consistent 20 Note: Persistent reduction for 3 months or more in an eGFR <60 mL/min/1.73 m2 defines CKD. Patients with eGFR values >/=60 mL/min/1.73 m2 may also have CKD if evidence of persistent proteinuria is present. The original MDRD equation for estimated GFR is not valid for patients less than 18 years of age. Additional information may be found at www.kdoqi.org. 21 0.0 - 0.045 ng/mL: Normal 0.046 - 0.5 ng/mL: Suggestive 0.6 - 1.5 ng/mL: Consistent 22 Note: Persistent reduction for 3 months or more in an eGFR <60 mL/min/1.73 m2 defines CKD. Patients with eGFR values >/=60 mL/min/1.73 m2 may also have CKD if evidence of persistent proteinuria is present. The original MDRD equation for estimated GFR is not valid for patients less than 18 years of age. Additional information may be found at www.kdoqi.org. 23 0.0 - 0.045 ng/mL: Normal 0.046 - 0.5 ng/mL: Suggestive 0.6 - 1.5 ng/mL: Consistent 24 Tests: lipase Instructions: 25 0.0 - 0.045 ng/mL: Normal 0.046 - 0.5 ng/mL: Suggestive 0.6 - 1.5 ng/mL: Consistent Procedures Date Code Description Status 01/02/2019 65205 Echocardiogram Complete Completed 12/06/2018 52492 EKG-Tracing And Report Completed 10/02/2018 07414 Spirometry Completed 09/09/2018 56424 EKG Interpretation And Report Only Completed 09/09/2018 37274 EKG Interpretation And Report Only Completed 08/01/2017 [id number] Mammogram Completed 08/01/2016 [id number] Bone Mineral Density Test Completed 11/01/2013 [id number] Mammogram Completed 09/10/2012 [id number] Colonoscopy Completed 07/18/2005 [id number] Colonoscopy Completed 03/15/2002 [id number] Colonoscopy Completed Medical Devices Description No Information Available Encounters Type Date Location Provider Dx Diagnosis Office Visit 02/12/2019 Cardiology Office Justine Rooney I25.10 Athscl heart 11:00a Jocelyn, FATEMEH, disease of [place] [employer] coronary artery w/o ang pctrs E78.5 Hyperlipidemia, unspecified I10 Essential (primary) hypertension I65.23 Occlusion and stenosis of bilateral carotid arteries Office Visit 01/15/2019 9:40a Cardiology Office Tez Szymanski I10 Essential Landy Mcguire, FACC (primary) hypertension E11.65 Type 2 diabetes mellitus with hyperglycemia I25.10 Athscl heart disease of [place] coronary artery w/o ang pctrs E78.5 Hyperlipidemia, unspecified I65.23 Occlusion and stenosis of bilateral carotid arteries Office Visit 01/15/2019 8:30a Family Medicine Jamar Mcduffie, I10 Essential (primary) iPllo REGALADO MD hypertension I25.10 Athscl heart disease of [place] coronary artery w/o ang pctrs E78.5 Hyperlipidemia, unspecified E11.65 Type 2 diabetes mellitus with hyperglycemia Office Visit 12/27/2018 10:00a Cardiology Office Kevon, I10 Essential ( primary) Marlyss B., PA hypertension Office Visit 12/18/2018 10:00a Cardiology Office [place], I10 Essential ( primary) Marlyss B., PA hypertension I25.10 Athscl heart disease of [place] coronary artery w/o ang pctrs I65.23 Occlusion and stenosis of bilateral carotid arteries E78.5 Hyperlipidemia, unspecified Office Visit 12/06/2018 1:05p Cardiology Office [place]evon, I10 Essential ( primary) Marlyss B., PA hypertension I25.10 Athscl heart disease of [place] coronary artery w/o ang pctrs I65.23 Occlusion and stenosis of bilateral carotid arteries E78.5 Hyperlipidemia, unspecified Office Visit 11/20/2018 2:20p Cardiology Office [place], I10 Essential ( primary) Marlyss B., PA hypertension I25.10 Athscl heart disease of [place] coronary artery w/o ang pctrs I65.23 Occlusion and stenosis of bilateral carotid arteries E78.5 Hyperlipidemia, unspecified I73.9 Peripheral vascular disease, unspecified Office Visit 11/07/2018 9:30a Family Medicine Becca Mojica, E11.65 [address] PNP-BC, [employer], mellitus with Ibclc hyperglycemia I10 Essential (primary) hypertension E78.5 Hyperlipidemia, unspecified Office Visit 11/02/2018 9:20a Cardiology Office Kevon, 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 B., 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 I10 Essential (primary) hypertension E78.5 Hyperlipidemia, unspecified I65.23 Occlusion and stenosis of bilateral carotid arteries I73.9 Peripheral vascular disease, unspecified Office Visit 10/24/2018 2:00p Family Medicine Sandhya Stafford, R10.[address] [employer] abdominal tenderness R22.1 Localized swelling, mass and lump, neck R05 Cough Office Visit 10/04/2018 Family David, J44.1 Chronic 9:00a Medicine [place] Verasudarshan, [employer] obstructive RD pulmonary disease w (acute) exacerbation J30.89 Other allergic rhinitis Office Visit 09/17/2018 9:30a Family Jamar Mcduffie, K21.0 Gastro-esophageal Medicine Pillo MAXWELL reflux disease with RD esophagitis J30.89 Other allergic rhinitis J44.9 Chronic obstructive pulmonary disease, unspecified I10 Essential (primary) hypertension E78.5 Hyperlipidemia, unspecified Office Visit 09/12/2018 9:00a Pulmonology MataSylvia friedman, J44.9 Chronic obstructive PA pulmonary disease, unspecified G47.33 Obstructive sleep apnea (adult) (pediatric) J30.89 Other allergic rhinitis K21.0 Gastro-esophageal reflux disease with esophagitis F17.211 Nicotine dependence, cigarettes, in remission Z68.38 Body mass index (BMI) 38.0-38.9, adult Assessments Date Code Description Provider 02/12/2019 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, MSN, [place] coronary artery without angina [employer] pectoris 02/12/2019 E78.5 Hyperlipidemia, unspecified Justine Rooney, MSN, [facility] 02/12/2019 I10 Essential (primary) hypertension Justine Rooney, MSN, [facility] 02/12/2019 I65.23 Occlusion and stenosis of bilateral Justine Rooney , FATEMEH, carotid arteries [facility] 01/15/2019 I10 Essential (primary) hypertension Tez Szymanski M.D., [facility] 01/15/2019 I10 Essential (primary) hypertension Jamar Mcduffie MD 01/15/2019 E11.65 Type 2 diabetes mellitus with Tez Szymanski M.D., hyperglycemia [facility] 01/15/2019 I25.10 Atherosclerotic heart disease of Jamar Mcduffie MD [place] coronary artery without angina pectoris 01/15/2019 E78.5 Hyperlipidemia, unspecified Jamar Mcduffie MD 01/15/2019 I25.10 Atherosclerotic heart disease of Tez Szymanski M.D. , [place] coronary artery without angina FAC pectoris 01/15/2019 E78.5 Hyperlipidemia, unspecified Tez Szymanski M.D., [facility] 01/15/2019 E11.65 Type 2 diabetes mellitus with Jamar Mcduffie MD hyperglycemia 01/15/2019 I65.23 Occlusion and stenosis of bilateral Tez Szymanski M.D., carotid arteries [facility] 01/02/2019 I25.10 Atherosclerotic heart disease of Dameon Bauman MD [place] coronary artery without angina pectoris 12/27/2018 I10 Essential (primary) hypertension Tez Szymanski M.D., [facility] 12/27/2018 I10 Essential (primary) hypertension Kevon, Marlyss B., PA 12/18/2018 I10 Essential (primary) hypertension Kevon, Marlyss B., PA 12/18/2018 I25.10 Atherosclerotic heart disease of Kevon, Marlyss B., PA [place] coronary artery with 12/18/2018 I65.23 Occlusion and stenosis of bilateral Kevon, Marlyss B., PA carotid arteries 12/18/2018 E78.5 Hyperlipidemia, unspecified Kevon, Marlyss B., PA 12/06/2018 I10 Essential (primary) hypertension Kevon, Marlyss B., PA 12/06/2018 I25.10 Atherosclerotic heart disease of Kevon, Marlyss B., PA [place] coronary artery with 12/06/2018 I65.23 Occlusion and stenosis of bilateral Kevon, Marlyss B., PA carotid arteries 12/06/2018 E78.5 Hyperlipidemia, unspecified Kevon, Marlyss B., PA 11/20/2018 I10 Essential (primary) hypertension Kevon, Marlyss B., PA 11/20/2018 I25.10 Atherosclerotic heart disease of Kevon, Marlyss B., PA [place] coronary artery with 11/20/2018 I65.23 Occlusion and stenosis of bilateral Kevon, Marlyss B., PA carotid arteries 11/20/2018 E78.5 Hyperlipidemia, unspecified Kevon, Marlyss B., PA 11/20/2018 I73.9 Peripheral vascular disease, Kevon, Marlyss B., PA unspecified 11/07/2018 E11.65 Type 2 diabetes mellitus with Becca Mojica, PNP-BC, [employer], hyperglycemia Ibclc 11/07/2018 I10 Essential (primary) hypertension Becca Mojica PNP-BC, [employer], Ibclc 11/07/2018 E78.5 Hyperlipidemia, unspecified Becca Mojica PNP-BC, [employer], Ibclc 11/02/2018 I25.10 Atherosclerotic heart disease of Kevon, Marlyss B., PA [place] coronary artery with 11/02/2018 I10 Essential (primary) hypertension Kevon Marlyss B., PA 11/02/2018 E78.5 Hyperlipidemia, unspecified Kevon, Marlyss B., PA 11/02/2018 I65.23 Occlusion and stenosis of bilateral Kevon, Marlyss B., PA carotid arteries 11/02/2018 I73.9 Peripheral vascular disease, Kevon Marlyss B., PA unspecified 10/26/2018 T78.3xxA Angioneurotic edema, initial Babs Serna, [employer] encounter 10/26/2018 T78.40xA Allergy, unspecified, initial Babs Serna [employer] encounter 10/26/2018 R73.9 Hyperglycemia, unspecified Babs Serna, [employer] 10/26/2018 I25.10 Atherosclerotic heart disease of Babs Serna NP [place] coronary artery without angina pectoris 10/25/2018 T78.3xxA Angioneurotic edema, initial Babs Serna [employer] encounter 10/25/2018 T78.40xA Allergy, unspecified, initial Babs Serna [employer] encounter 10/25/2018 R73.9 Hyperglycemia, unspecified Babs Serna, [employer] 10/25/2018 I25.10 Atherosclerotic heart disease of Babs Serna NP [place] coronary artery without angina pectoris 10/24/2018 R10.816 Epigastric abdominal tenderness Sandhya Stafford FNP 10/24/2018 R22.1 Localized swelling, mass and lump, Sandhya Stafford FNP neck 10/24/2018 R05 Cough Sandhya Stafford FNP 10/04/2018 J44.1 Acute exacerbation of chronic Dafne Hernandez FNP obstructive airways disease 10/04/2018 J30.89 Other allergic rhinitis Dafne Hernandez FNP 10/02/2018 J44.9 Chronic obstructive pulmonary Layo Duke MD disease, unspecified 09/17/2018 K21.0 Gastro-esophageal reflux disease with Jamar Mcduffie MD esophagitis 09/17/2018 J30.89 Other allergic rhinitis Jamar Mcduffie MD 09/17/2018 J44.9 Chronic obstructive pulmonary Jamar Mcduffie MD disease, unspecified 09/17/2018 I10 Essential (primary) hypertension Jamar Mcduffie MD 09/17/2018 E78.5 Hyperlipidemia, unspecified Jamar Mcduffie MD 09/12/2018 J44.9 Chronic obstructive pulmonary Sylvia Nunez PA disease, unspecified 09/12/2018 G47.33 Obstructive sleep apnea (adult) Sylvia Nunez PA (pediatric) 09/12/2018 J30.89 Other allergic rhinitis Sylvia Nunez PA 09/12/2018 K21.0 Gastro-esophageal reflux disease with Sylvia Nunez PA esophagitis 09/12/2018 Z68.38 Body mass index (BMI) 38.0-38.9, Sylvia Nunez PA adult 09/12/2018 F17.211 Nicotine dependence, cigarettes, in Sylvia Nunez PA remission 09/09/2018 R94.31 Abnormal electrocardiogram [ECG] Dameon Bauman MD [EKG] 09/09/2018 R07.9 Chest pain, unspecified Lucie Early M.D. 09/09/2018 R07.9 Chest pain, unspecified Dameon Bauman MD 09/09/2018 I16.0 Hypertensive urgency Lucie Early M.D. 09/09/2018 Z86.79 Personal history of other diseases of Lucie Early M.D. the circulatory system 09/08/2018 R07.9 Chest pain, unspecified Lucie Early M.D. 09/08/2018 I16.0 Hypertensive urgency Lucie Early M.D. 09/08/2018 Z86.79 Personal history of other diseases of Lucie Early M.D. the circulatory system Plan of Treatment Future Appointment(s):03/01/2019 1:00 pm - Justine Rooney, FATEMEH, [employer] at [facility]/20/2019 9:00 am - Justine Rooney, MSN, [employer] at [facility]/15/2019 10:40 am - Sylvia Nunez PA at [facility]/26/ 2019 8:30 am - Jamar Mcduffie MD at [facility]10/24/2018 - Sandhya Stafford, FNPR10.816 Epigastric abdominal tendernessComments:Unsure etiology.Able to get her an U/S today!Checking CBC and CMP today.Advised to go to ER for any worsening or new symptoms, such as nausea, vomiting, worsening pain, fever, diarrhea, etc. Especiallywith your history of 2 heart attacks. Will call with results before I leave for the day and will advise to go to ER if necessary at that time.R22.1 Localized swelling, mass and lump, neckNew Medication: Prednisone 10 mg - Start with 6 tabs po once daily and decrease by 1 tab per day until gone.Comments:Lip swelling, mostly on the right side, as well as a red raised rash behind both ears and back of the neck and into the back of scalp. No tongue swelling.Allergic reaction versus shingles versus other reaction.Going to start a prednisone taper.F/u 1 week.Follow up:1 weekR05 Cough Functional Status Functional Condition Comment Date Status Cpap Active Independent with all ADL's Active Complete Dentures Active Mental Status Description No Information Available Referrals Refer to Reason for Referral Status Appt Date Radhika Newsome new onset diabetes Closed 11/20/2018 [address] [place] [address] [phone] Yohannes Bauman MD 73yo female with h/o asthma, HTN, HLD, MIx2, Closed 03/2019 GERD. Was hospitalized 10/24/18-10/25/18 for allergic reaction with angioedema, source unknown. Had taken lisinopril x20 years. Did have exposure to raw honey. Requests allergy referral per hospital recommendations. [facility] [address] [place] [id number] [phone] Fan Girard MD Closed 10/17/2018 [address] [place] [address] [phone] Radhika Newsome Management of reflux and weight loss Scheduled 11/20/2018 [address] [place] [address] [phone]
--- OUTSIDE RECORDS SUMMARY | 2019-02-20 17:38 | XMS REPORT | Continuity of Care Document ---
:1945 External Reference #:[id number] Author Name Tez Szymanski M.D., [facility] Address [address] [place] [address] Care Team Providers Name Role Phone Eze Lamas III, MD - Care Team Information Avionics Repair Technician [phone] Ophthalmology Becca Mojica, PNP-BC, TIRE SPECIALIST, Ibclc Care Team Information Avionics Repair Technician [phone] - Family Problems Active Problems Provider Date Localized, primary osteoarthritis Jeremiah Santiago MD Onset: 06/08/2011 Note: Document: 01/17/18 - R Knee Xray Peripheral vascular disease Lori Martinez ANP Onset: 08/18/2011 Benign essential hypertension Lori Martinez ANP Onset: 08/18/2011 Chronic pulmonary heart disease Lori Martinez ANP Onset: 08/18/2011 Atherosclerotic heart disease of [place] Lori Martinez ANP Onset: 2014 coronary artery [...] artery occlusion Tez Szymanski M.D., Onset: 01/15/2019 [facility] Type II diabetes mellitus uncontrolled Tez Szymanski M.D., Onset: [facility] Social History Type Date Description Comments Sex [...] Medications SIG Qnty Indications Ordering Date Provider Metformin HCL take one tablet 180tabs E11.65 Jamar Mcduffie, 1000mg Tablets by mouth twice a MD 9 day Verapamil HCL ER 1 by mouth every 30caps Nessa, 180mg Caps ER day Tez Mcguire, 9 24HR M.D., [facility] Incruse Ellipta take 1 puff once 30units Layo Duke, 62.5mcg/Inh daily. 9 Aerosol Spironolactone 2 by mouth every Reyenko, 25mg Tablets day Tez M., 9 M.D., [facility] Hydrochlorothiazide 1 by mouth every 90tabs I10 Nessa, 25mg day Tez M., 9 Tablets M.D., [facility] Accu-Chek Compact Plus as directed to 1units E11.65 Becca Mojica, Care Kit check blood PNP-BC, TIRE SPECIALIST, 9 Kit sugar one to two Ibclc times a day Accu-Chek Compact Plus to check glucose 102units E11.65 Becca Mojica, Strips one to two times PNP-BC, TIRE SPECIALIST, 9 a day Ibclc Accu-Chek Fastclix to check sugar 102units E11.65 Becca Mojica, Lancets one to two times PNP-BC, TIRE SPECIALIST, 9 Misc a day Ibclc Alcohol Prep for use with 100units E11.65 Becca Mojica, 70% Pads glucometer PNP-BC, TIRE SPECIALIST, 9 Ibclc Atorvastatin Calcium take 1 tablet by 90tabs E78.2 Nessa, 20mg mouth at bedtime Tez Mcguire, 7 Tablets M.D., [facility] Nitrostat 1. tab s.l. as 25tabs I25.10 [...] Becca Mojica, 25mg Tablets a day PNP-BC, TIRE SPECIALIST, 0 Ibclc Advair HFA inhale 2 puffs 36units Layo Duke, 115-21mcg/Act twice a day MD 0 Aerosol Vitamin B Complex 1 by mouth every Unknown Tablets day 0 Vitamin D 1 by mouth every Unknown 2000Unit Capsules day 0 Ventolin HFA Take 2 puffs 8gm Layo Duke, 108(90Base) every 6 hours as MD 0 mcg/Act Aerosol needed for shortness of breath. History Medications Spironolactone 1 by mouth 90tabs Tez Szymanski 12/13/2018 - 25mg Tablets every day Landy Mcguire, [facility] 12/27/2018 Amlodipine Besylate 1 by mouth 30tabs I10 Tez Szymanski 12/10/2018 - 10mg every day Landy Mcguire, [facility] 01/15/2019 Tablets Amlodipine Besylate 1 by mouth 30tabs I10 Tez Szymanski 12/06/2018 - 5mg Tablets every day Landy Mcguire, [facility] 12/10/2018 Lisinopril-Hydrochlorothi 1 by mouth 180tabs I10 Becca Mojica, 2018 - azide twice a day PNP-BC, TIRE SPECIALIST, 11/20/2018 20-12.5mg Tablets Ibclc Hydrochlorothiazide 1 by mouth 30tabs I10 Tez Szymanski 11/02/2018 - 25mg every day Landy Mcguire, [facility] 11/07/2018 Tablets Prednisone Start with 6 21tabs R22.1 Sandhya Stafford, 10/24/2018 - 10mg Tablets tabs po once TIRE SPECIALIST Unknown daily and decrease by 1 tab per day until gone. Benzonatate 1 cap by mouth 30caps J44.1 Clune, 10/04/2018 - 100mg Capsules three times a Jenniferleigh, 10/24/2018 day cough TIRE SPECIALIST Prednisone start at 6 21tabs J44.1 Clune, 10/04/2018 - 10mg Tablets tabs by mouth Jenniferleigh, 10/11/2018 every day and TIRE SPECIALIST decrease by one tab each day until gone HM Cetirizine HCL Once daily PO 90tabs J30.89 Layo Duke MD 09/12/2018 - 10mg Tablets 09/17/2018 Immunizations CPT Code Status Date Vaccine Lot # [id number] Given 2018 Influenza Virus Vaccine, Quadrivalent, 36 Mos+, .5ML 56150 Given 02/25/2017 Influenza Virus Vaccine [place] [id number] Given 11/05/1996 Tetnus Injection Vital Signs Date Vital Result Comment 01/15/2019 9:39am BP Systolic Sitting Left Arm 178 mmHg BP Diastolic Sitting Left Arm 72 mmHg Heart Rate 71 /min Respiratory Rate 20 /min Height 62 inches 5'2" Weight 204.00 lb BMI (Body Mass Index) 37.3 kg/m2 BSA (Body Surface Area) 1.93 m2 [place] body weight in kilograms 50 kg O2 % BldC Oximetry 95 % 01/15/2019 8:32am BP Systolic Sitting Left Arm 132 mmHg BP Diastolic Sitting Left Arm 74 mmHg Body Temperature 98.0 F Heart Rate 74 /min Respiratory Rate 18 /min Height 62 inches 5'2" Weight 205.00 lb BMI (Body Mass Index) 37.5 kg/m2 BSA (Body Surface Area) 1.93 m2 [place] body weight in kilograms 50 kg Results Test Date Facility Test Result H/L Range Note Basic Metabolic 12/20/2018 [facility] Glucose 135 mg/dL High 74-106 1 Panel [address] [place] [address] [phone] BUN 20 mg/dL High 7-18 Creatinine 0.8 mg/dL Normal 0.6-1.3 Glom Filtration Rate, Estimate >60 mL/min >60 If >60 mL/min >60 2 BUN/Creat 25.0 ratio Sodium 139 mmol/L Normal 136-145 Potassium 3.8 mmol/L Normal 3.5-5.1 Chloride 103 mmol/L Normal 98-107 Carbon Dioxide 29 mmol/L Normal 21-32 Anion Gap 7 mEq/L Low 8-16 Calcium 8.9 mg/dL Normal 8.5-10.1 Basic Metabolic Panel 11/02/2018 [facility] Glucose 138 mg/dL High 74-106 3 [address] [place] [address] [phone] BUN 18 mg/dL Normal 7-18 Creatinine 0.9 mg/dL Normal 0.6-1.3 Glom Filtration Rate, Estimate >60 mL/min >60 If >60 mL/min >60 4 BUN/Creat 20.0 ratio Sodium 138 mmol/L Normal 136-145 Potassium 4.1 mmol/L Normal 3.5-5.1 Chloride 101 mmol/L Normal 98-107 Carbon Dioxide 31 mmol/L Normal 21-32 Anion Gap 6 mEq/L Low 8-16 Calcium 8.4 mg/dL Low 8.5-10.1 CBC W/Automated 10/26/2018 [facility] White Blood 6.9 K/uL Normal 3.1-10.7 [address] [place] [address] [phone] Red Blood Count 3.88 M/uL Low 3.90-5.40 [...] 40.4-72.8 Lymph % 9.5 % Low 20.0-42.0 [place] % 3.2 % Low 4.3-13.2 Eo% 0.0 % Normal 0.0-6.6 Bas% 0.0 % Normal 0.0-1.1 Immature Grans 0.7 % Normal 0.0-5.0 NRBC % 0.0 /100WBC < 10/ 100 WBC Neut# 5.99 K/uL Normal 1.8-7.0 Lymph # 0.66 K/uL Low 1.0-4.0 [place] # 0.22 K/uL Low 0.3-0.9 Eos # 0.00 K/uL Normal 0.0-0.5 Baso # 0.00 K/uL Normal 0.0-0.1 Immature Grans Absolute 0.05 K/uL NRBC # 0.00 K/uL Basic Metabolic Panel 10/26/2018 [facility] Glucose 247 mg/dL High 74-[address] [place] [address] [phone] BUN 18 mg/dL Normal 7-18 Creatinine 1.0 mg/dL Normal 0.6-1.3 Glom Filtration Rate, Estimate 58 mL/min >60 If >60 mL/min >60 6 BUN/Creat 18.0 ratio Sodium 136 mmol/L Normal 136-145 Potassium 3.5 mmol/L Normal 3.5-5.1 Chloride 101 mmol/L Normal 98-107 Carbon Dioxide 27 mmol/L Normal 21-32 Anion Gap 8 mEq/L Normal 8-16 Calcium 7.7 mg/dL Low 8.5-10.1 Glycohemoglobin 10/26/2018 [facility] Glycohemoglobin 7.7 % High 4.2-6.[address] (A1c) [place], [place] [id number] [phone] eAG 174 mg/dL Laboratory test 10/26/2018 [facility] Lyme Total < 0.91 0.00-0.90 [address] AB/[place] [address] WB [phone] CBC W/Automated 10/25/2018 [facility] White Blood 6.4 K/uL Normal 3.1-10.7 [address] [place] [place] [address] [phone] Red Blood Count 4.75 M/uL Normal 3.90-5.40 [...] 40.4-72.8 Lymph % 10.5 % Low 20.0-42.0 [place] % 2.0 % Low 4.3-13.2 Eo% 0.2 % Normal 0.0-6.6 Bas% 0.2 % Normal 0.0-1.1 Immature Grans 0.5 % Normal 0.0-5.0 NRBC % 0.0 /100WBC < 10/ 100 WBC Neut# 5.55 K/uL Normal 1.8-7.0 Lymph # 0.67 K/uL Low 1.0-4.0 [place] # 0.13 K/uL Low 0.3-0.9 Eos # 0.01 K/uL Normal 0.0-0.5 Baso # 0.01 K/uL Normal 0.0-0.1 Immature Grans Absolute 0.03 K/uL NRBC # 0.00 K/uL Comprehensive Metabolic 10/25/2018 [facility] Glucose 231 mg/dL High 74-[address] [place] [address] [phone] BUN 18 mg/dL Normal 7-18 Creatinine 1.3 [...] 38 U/L Low 45-117 Laboratory test 10/25/2018 [facility] Lipase 43 U/L Low 56-[address] [place], [place] [id number] [phone] CBC W/Automated 10/24/[address] White Blood 6.2 K/uL Normal 3.1-10.7 [address] [place], [place] [id number] [phone] Red Blood Count 4.77 M/uL Normal 3.90-5.40 [...] 40.4-72.8 Lymph % 18.5 % Low 20.0-42.0 [place] % 6.7 % Normal 4.3-13.2 Eo% 1.3 % Normal 0.0-6.6 Bas% 0.2 % Normal 0.0-1.1 Immature Grans 0.3 % Normal 0.0-5.0 NRBC % 0.0 /100WBC < 10/ 100 WBC Neut# 4.50 K/uL Normal 1.8-7.0 Lymph # 1.14 K/uL Normal 1.0-4.0 [place] # 0.41 K/uL Normal 0.3-0.9 Eos # 0.08 K/uL Normal 0.0-0.5 Baso # 0.01 K/uL Normal 0.0-0.1 Immature Grans Absolute 0.02 K/uL NRBC # 0.00 K/uL Comprehensive Metabolic 10/24/[address] [facility] [address] Glucose 120 mg/dL High 74-106 Panel [address] [place] [address] [phone] BUN 14 mg/dL Normal 7-18 Creatinine 1.1 [...] 37 U/L Low 45-117 LDL Cholesterol 09/17/[address] [facility] [address] Cholesterol 158 mg/dL <200 13, 14 Profile [address] [place] [address] [phone] Triglycerides 82 mg/dL <150 15 HDL Cholesterol 56 mg/dL >40 16 LDL-Cholesterol 86 mg/dL < 100 17 Laboratory test 09/09/2018 [facility] Troponin-I < 0.015 18, [address] ng/mL [place], [place] [address] [phone] Basic Metabolic 09/09/2018 [facility] Glucose 128 mg/dL High 74-[address] [place] [address] [phone] BUN 18 mg/dL Normal 7-18 Creatinine 0.9 mg/dL Normal 0.6-1.3 Glom Filtration Rate, Estimate >60 mL/min >60 If >60 mL/min >60 20 BUN/Creat 20.0 ratio Sodium 136 mmol/L Normal 136-145 Potassium 3.5 mmol/L Normal 3.5-5.1 Chloride 99 mmol/L Normal 98-107 Carbon Dioxide 30 mmol/L Normal 21-32 Anion Gap 7 mEq/L Low 8-16 Calcium 8.7 mg/dL Normal 8.5-10.1 CBC W/Automated 09/09/2018 [facility] White Blood 6.2 K/uL Normal 3.1-10.[address] [place] [address] [phone] Red Blood Count 4.29 M/uL Normal 3.90-5.40 [...] 40.4-72.8 Lymph % 28.0 % Normal 20.0-42.0 [place] % 8.8 % Normal 4.3-13.2 Eo% 2.3 % Normal 0.0-6.6 Bas% 0.5 % Normal 0.0-1.1 Immature Grans 0.3 % Normal 0.0-5.0 NRBC % 0.0 /100WBC < 10/ 100 WBC Neut# 3.74 K/uL Normal 1.8-7.0 Lymph # 1.74 K/uL Normal 1.0-4.0 [place] # 0.55 K/uL Normal 0.3-0.9 Eos # 0.14 K/uL Normal 0.0-0.5 Baso # 0.03 K/uL Normal 0.0-0.1 Immature Grans Absolute 0.02 K/uL NRBC # 0.00 K/uL Laboratory test 09/09/2018 [facility] Troponin-I < 0.015 [address] ng/[place] [address] [phone] Comprehensive 09/08/2018 [facility] Glucose 132 mg/dL High 74-106 Metabolic Panel [address] [place] [address] [phone] BUN 18 mg/dL Normal 7-18 Creatinine 1.1 [...] U/L Low 45-117 Laboratory test finding 09/08/2018 [facility] Lipase 76 U/L Normal 56-[address] [place] [address] [phone] Troponin-I < 0.015 ng/mL 23 CBC W/Automated 09/08/2018 [facility] White Blood 6.8 K/uL Normal 3.1-10.[address] [place] [address] [phone] Red Blood Count 4.66 M/uL Normal 3.90-5.40 [...] 40.4-72.8 Lymph % 24.9 % Normal 20.0-42.0 [place] % 8.0 % Normal 4.3-13.2 Eo% 1.8 % Normal 0.0-6.6 Bas% 0.4 % Normal 0.0-1.1 Immature Grans 0.6 % Normal 0.0-5.0 NRBC % 0.0 /100WBC < 10/ 100 WBC Neut# 4.36 K/uL Normal 1.8-7.0 Lymph # 1.69 K/uL Normal 1.0-4.0 [place] # 0.54 K/uL Normal 0.3-0.9 Eos # 0.12 K/uL Normal 0.0-0.5 Baso # 0.03 K/uL Normal 0.0-0.1 Immature Grans Absolute 0.04 K/uL NRBC # 0.00 K/uL Aot Request 09/08/2018 [facility] Aot Request Test(s) added [address] [place] [address] [phone] Tests to be added: lipase Laboratory test 09/08/2018 [facility] Troponin-I < 0.015 [address] ng/[place] [address] [phone] Basic Metabolic 07/30/2018 [facility] Glucose 91 mg/dL Normal 74-106 [address] [place] [address] [phone] BUN 18 mg/dL Normal 7-18 Creatinine 1.0 mg/dL Normal 0.6-1.3 Glom Filtration Rate, Estimate 58 mL/min >60 If >60 mL/min >60 27 BUN/Creat 18.0 ratio Sodium 139 mmol/L Normal 136-145 Potassium 3.7 mmol/L Normal 3.5-5.1 Chloride 104 mmol/L Normal 98-107 Carbon Dioxide 28 mmol/L Normal 21-32 Anion Gap 7 mEq/L Low 8-16 Calcium 8.2 mg/dL Low 8.5-10.1 CBC W/Automated 07/30/2018 [facility] White Blood 6.9 K/uL Normal 3.1-10.[address] [place] [place] [address] [phone] Red Blood Count 4.53 M/uL Normal 3.90-5.40 Hemoglobin 12.2 gm/dL Normal 11.6-15.8 Hematocrit 37.9 % Normal 36.0-46.1 Mean Cell Volume 83.7 fl Normal 80.9-99.0 Mean Corpuscular HGB 26.9 pg Normal 25.9-32.7 Mean Corpuscular HGB Conc 32.2 g/dL Normal 30.8-34.3 Platelet Count 166 K/uL Normal 155-360 Red Cell Distri Width SD 39.9 fl Normal 36-47 Red Cell Distri Width %CV 13.4 % Normal 11.7-14.4 Mean Platelet Volume 10.1 fL Normal 8.9-12.4 Neut% 63.2 % Normal 40.4-72.8 Lymph % 25.2 % Normal 20.0-42.0 [place] % 8.5 % Normal 4.3-13.2 Eo% 2.7 % Normal 0.0-6.6 Bas% 0.4 % Normal 0.0-1.1 Neut# 4.36 K/uL Normal 1.8-7.0 Lymph # 1.74 K/uL Normal 1.0-4.0 [place] # 0.59 K/uL Normal 0.3-0.9 Eos # 0.19 K/uL Normal 0.0-0.5 Baso # 0.03 K/uL Normal 0.0-0.1 Glycohemoglobin 07/30/2018 [facility] Glycohemoglobin 6.9 % High 4.2-6.3 28 A1c [address] (A1c) [place] [address] [phone] eAG 151 mg/dL 1 I10 2 Note: Persistent reduction for [...] for more aggressive treatment of glycemia. The [place] [employer] recommends that a primary goal of therapy should be a HbA1c of <7% and that physicians should re-evaluate the treatment regimen in patients with HbA1c values consistently >8%. 8 Negative <0.91 Equivocal 0.91 - 1.09 Positive >1.09 Performed at: RN - [facility] [address] [id number] Stone Rigger: Corrina Palma MD, Phone: [phone] LIPS AND TONGUE SWELLING AND RASH [...] information may be found at [email or web address]. 11 R10.426 12 Note: Persistent reduction for 3 months [...] ng/mL: Suggestive 0.6 - 1.5 ng/mL: Consistent 26 I10 R730.3 27 Note: Persistent reduction for 3 months or more in an eGFR <60 mL/min/1.73 m2 defines CKD. Patients with eGFR values >/=60 mL/min/1.73 m2 may also have CKD if evidence of persistent proteinuria is present. The original MDRD equation for estimated GFR is not valid for patients less than 18 years of age. Additional information may be found at www.[email or web address]. 28 Elevated levels of HbA1c suggest the need for more aggressive treatment of glycemia. The [place] [employer] recommends that a primary goal of therapy should be a HbA1c of <7% and that physicians should re-evaluate the treatment regimen in patients with HbA1c values consistently >8%. Procedures Date Code Description Status 01/02/2019 64386 Echocardiogram Complete Completed 12/06/2018 10663 EKG-Tracing And Report Completed 10/02/2018 83289 Spirometry Completed 09/09/2018 12092 EKG Interpretation And Report Only Completed 09/09/2018 02029 EKG Interpretation And Report Only Completed 08/01/2017 [id number] Mammogram Completed 08/01/2016 [id number] Bone Mineral Density Test Completed 11/01/2013 35030212 Mammogram Completed 09/10/2012 29148648 Colonoscopy Completed 07/18/2005 47325277 Colonoscopy Completed 03/15/2002 50970827 Colonoscopy Completed Medical Devices Description No Information Available Encounters Type Date Location Provider Dx Diagnosis Office Visit 01/15/2019 Cardiology Office Tez Szymanski I10 Essential ( primary) 9:40a Landy Mcguire, [facility] hypertension E11.65 Type 2 diabetes mellitus with hyperglycemia I25.10 Aths[facility] heart disease of [place] coronary artery w/o ang pctrs E78.5 Hyperlipidemia, unspecified I65.23 Occlusion and stenosis of bilateral carotid arteries Office Visit 01/15/2019 8:30a Family Medicine Jamar Mcduffie, I10 Essential (primary) Pillo REGALADO MD hypertension I25.10 Athscl heart disease of [place] coronary artery w/o ang pctrs E78.5 Hyperlipidemia, unspecified E11.65 Type 2 diabetes mellitus with hyperglycemia Office Visit 12/27/2018 10:00a Cardiology Office Kevon, I10 Essential ( primary) Marlyss B., PA hypertension Office Visit 12/18/2018 10:00a Cardiology Office Kevon, I10 Essential ( primary) Marlyss B., PA hypertension I25.10 Athscl heart disease of [place] coronary artery w/o ang pctrs I65.23 Occlusion and stenosis of bilateral carotid arteries E78.5 Hyperlipidemia, unspecified Office Visit 12/06/2018 1:05p Cardiology Office Kevon, I10 Essential ( primary) Marlyss B., PA hypertension I25.10 Athscl heart disease of [place] coronary artery w/o ang pctrs I65.23 Occlusion and stenosis of bilateral carotid arteries E78.5 Hyperlipidemia, unspecified Office Visit 11/20/2018 2:20p Cardiology Office Kevon, I10 Essential ( primary) Marlyss B., PA hypertension I25.10 Athscl heart disease of [place] coronary artery w/o ang pctrs I65.23 Occlusion and stenosis of bilateral carotid arteries E78.5 Hyperlipidemia, unspecified I73.9 Peripheral vascular disease, unspecified Office Visit 11/07/2018 9:30a Family Medicine Becca Mojica, E11.65 Type 2 diabetes Pillo REGALADO PNP-BC, TIRE SPECIALIST, mellitus with Ibclc hyperglycemia I10 Essential (primary) hypertension E78.5 Hyperlipidemia, unspecified Office Visit 11/02/2018 9:20a Cardiology Office Kevon, I25.10 Athscl heart Ashley Aquino PA disease of [place] coronary artery w/o ang pctrs I10 Essential (primary) hypertension E78.5 Hyperlipidemia, unspecified I65.23 Occlusion and stenosis of bilateral carotid arteries I73.9 Peripheral vascular disease, unspecified Office Visit 10/24/2018 2:00p Family Medicine Sandhya Stafford, R10.[address] TIRE SPECIALIST abdominal tenderness R22.1 Localized swelling, mass and lump, neck R05 Cough Office Visit 10/04/2018 Family David J44.1 Chronic 9:00a Medicine MARCUS Manrique obstructive RD pulmonary disease w (acute) exacerbation J30.89 Other allergic rhinitis Office Visit 09/17/2018 9:30a [facility] Jamar Mcduffie, K21.0 Gastro-esophageal Medicine Pillo MAXWELL reflux disease with RD esophagitis J30.89 Other allergic rhinitis J44.9 Chronic obstructive pulmonary disease, unspecified I10 Essential (primary) hypertension E78.5 Hyperlipidemia, unspecified Office Visit 09/12/2018 9:00a Pulmonology Sylvia Nunez, J44.9 Chronic obstructive PA pulmonary disease, unspecified G47.33 Obstructive sleep apnea (adult) (pediatric) J30.89 Other allergic rhinitis K21.0 Gastro-esophageal reflux disease with esophagitis F17.211 Nicotine dependence, cigarettes, in remission Z68.38 Body mass index (BMI) 38.0-38.9, adult Office Visit 07/30/2018 2:15p Family Medicine Galina, Z01.818 Encounter for other [place] FABRICIO Hudson, preprocedural PNP-BC, TIRE SPECIALIST, examination Ibclc I10 Essential (primary) hypertension J44.9 Chronic obstructive pulmonary disease, unspecified F41.9 Anxiety disorder, unspecified R73.03 Prediabetes E78.2 Mixed hyperlipidemia I25.10 [facility] disease of [place] coronary artery w/o ang pctrs Assessments Date Code Description Provider 01/15/2019 I10 Essential (primary) hypertension Tez Szymanski M.D., [facility] 01/15/2019 I10 Essential (primary) hypertension Jamar Mcduffie MD 01/15/2019 E11.65 Type 2 diabetes mellitus with Tez Szymanski M.D., hyperglycemia FACC 01/15/2019 I25.10 Atherosclerotic heart disease of Jamar Mcduffie MD [place] coronary artery without angina pectoris 01/15/2019 I25.10 Atherosclerotic heart disease of Tez Szymanski M.D. , [place] coronary artery without angina FACC pectoris 01/15/2019 E78.5 Hyperlipidemia, unspecified Jamar Mcduffie MD 01/15/2019 E78.5 Hyperlipidemia, unspecified Tez Szymanski M.D., FACC 01/15/2019 E11.65 Type 2 diabetes mellitus with Jamar Mcduffie MD hyperglycemia 01/15/2019 I65.23 Occlusion and stenosis of bilateral Tez Szymanski M.D., carotid arteries [facility] 01/02/2019 I25.10 Atherosclerotic heart disease of Dameon Bauman MD [place] coronary artery without angina pectoris 12/27/2018 I10 Essential (primary) hypertension Tez Szymanski M.D., FACC 12/27/2018 I10 Essential (primary) hypertension Kevon, Marlyss B., PA 12/18/2018 I10 Essential (primary) hypertension Kevon, Marlyss B., PA 12/18/2018 I25.10 Atherosclerotic heart disease of Kevon, Marlyss B., PA [place] coronary artery with 12/18/2018 I65.23 Occlusion and stenosis of bilateral Kevon, Marlyss B., PA carotid arteries 12/18/2018 E78.5 Hyperlipidemia, unspecified Kevon, Marlyss B., PA 12/06/2018 I10 Essential (primary) hypertension Kevon, Marlyss B., PA 12/06/2018 I25.10 Atherosclerotic heart disease of Kevon, Marlyss B., PA [place] coronary artery with 12/06/2018 I65.23 Occlusion and stenosis of bilateral Kevon, Marlyss B., PA carotid arteries 12/06/2018 E78.5 Hyperlipidemia, unspecified Kevon, Marlyss B., PA 11/20/2018 I10 Essential (primary) hypertension Kevon, Marlyss B., PA 11/20/2018 I25.10 Atherosclerotic heart disease of Kevon, Marlyss B., PA [place] coronary artery with 11/20/2018 I65.23 Occlusion and stenosis of bilateral Kevon, Marlyss B., PA carotid arteries 11/20/2018 E78.5 Hyperlipidemia, unspecified Kevon, Marlyss B., PA 11/20/2018 I73.9 Peripheral vascular disease, Kevon, Marlyss B., PA unspecified 11/07/2018 E11.65 Type 2 diabetes mellitus with Becca Mojica PNP-BC, TIRE SPECIALIST, hyperglycemia Ibclc 11/07/2018 I10 Essential (primary) hypertension Becca Mojica PNP-BC, TIRE SPECIALIST, Ibclc 11/07/2018 E78.5 Hyperlipidemia, unspecified Becca Mojica PNP-BC, TIRE SPECIALIST, Ibclc 11/02/2018 I25.10 Atherosclerotic heart disease of Kevon, Marlyss B., PA [place] coronary artery with 11/02/2018 I10 Essential (primary) hypertension Kevon, Marlyss B., PA 11/02/2018 E78.5 Hyperlipidemia, unspecified Kevon, Marlyss B., PA 11/02/2018 I65.23 Occlusion and stenosis of bilateral Kevon, Marlyss B., PA carotid arteries 11/02/2018 I73.9 Peripheral vascular disease, Kevon, Marlyss B., PA unspecified 10/26/2018 T78.3xxA Angioneurotic edema, initial Babs Serna NP encounter 10/26/2018 T78.40xA Allergy, unspecified, initial Babs Serna, CERTIFIED PERSONAL FINANCE COUNSELOR encounter 10/26/2018 R73.9 Hyperglycemia, unspecified Babs Serna, CERTIFIED PERSONAL FINANCE COUNSELOR 10/26/2018 I25.10 Atherosclerotic heart disease of Babs Serna NP [place] coronary artery without angina pectoris 10/25/2018 T78.3xxA Angioneurotic edema, initial Babs Serna NP encounter 10/25/2018 T78.40xA Allergy, unspecified, initial Babs Serna, CERTIFIED PERSONAL FINANCE COUNSELOR encounter 10/25/2018 R73.9 Hyperglycemia, unspecified Babs Serna, CERTIFIED PERSONAL FINANCE COUNSELOR 10/25/2018 I25.10 Atherosclerotic heart disease of Babs Serna NP [place] coronary artery without angina pectoris 10/24/2018 R10.816 Epigastric abdominal tenderness Pamela Stafforda, [facility] 10/24/2018 R22.1 Localized swelling, mass and lump, Pamela Stafforda, [facility] neck 10/24/2018 R05 Cough Stafford Sandhya, [facility] 10/04/2018 J44.1 Acute exacerbation of chronic Dafne Hernandez [facility] obstructive airways disease 10/04/2018 J30.89 Other allergic rhinitis Vera Hernandezjuhigareth [facility] 10/02/2018 J44.9 Chronic obstructive pulmonary Layo Duke [...] disease with Sylvia Nunez PA esophagitis 09/12/2018 F17.211 Nicotine dependence, cigarettes, in Sylvia Nunez PA remission 09/12/2018 Z68.38 Body mass index (BMI) 38.0-38.9, Sylvia Nunez PA adult 09/09/2018 R94.31 Abnormal electrocardiogram [ECG] Dameon Bauman [...] of Lucie Early M.D. the circulatory system 07/30/2018 Z01.818 Encounter for other preprocedural Becca Mojica PNP-BC, TIRE SPECIALIST, examination Ibclc 07/30/2018 I10 Essential (primary) hypertension Becca Mojica PNP-BC, TIRE SPECIALIST, Ibclc 07/30/2018 J44.9 Chronic obstructive pulmonary Becca Mojica PNP-BC, MARCUS, disease, unspecified Ibclc 07/30/2018 F41.9 Anxiety disorder, unspecified Becca Mojica PNP-BC, TIRE SPECIALIST, Ibclc 07/30/2018 R73.03 Prediabetes Becca Mojica PNP-BC, TIRE SPECIALIST, Ibclc 07/30/2018 E78.2 Mixed hyperlipidemia Becca Mojica PNP-BC, TIRE SPECIALIST, Ibclc 07/30/2018 I25.10 Atherosclerotic heart disease of Becca Mojica PNP-BC, FNP, [place] coronary artery with Ibclc Plan of Treatment Future Appointment(s):03/20/2019 9:00 am - Justine Rooney, FATEMEH, TIRE SPECIALIST at [facility]003/15/2019 10:40 am - Sylvia Nunez PA at [facility]/26/ 2019 8:30 am - Jamar Mcduffie MD at [facility]10/24/2018 - Sandhya Stafford, FNPR10.816 Epigastric abdominal tendernessComments:Unsure [...] [place] new onset diabetes Closed 11/20/2018 [address] [place] [address] [phone] Yohannes Bauman MD 73yo female with h/o asthma, HTN, HLD, MIx2, Closed 03/2019 GERD. Was hospitalized 10/24/18-10/25/18 for allergic reaction with angioedema, source unknown. Had taken lisinopril x20 years. Did have exposure to raw honey. Requests allergy referral per hospital recommendations. [facility] [address] [place] [id number] [phone] Fan Girard MD Closed 10/17/2018 [address] [place] [place] [address] [phone] Radhika [place] Management of reflux and weight loss Scheduled 11/20/2018 [address] [place] [id number] [phone]
== END 2019-02-20 17:38 | disposition short-term general hospital (02) ==
LOC: UCCORT 16:57
DX: R07.89 Other chest pain (principal); I25.10 Atherosclerotic heart disease of native coronary artery without angina pectoris; E11.9 Type 2 diabetes mellitus without complications; E78.5 Hyperlipidemia, unspecified; R00.1 Bradycardia, unspecified; I10 Essential (primary) hypertension; Z79.84 Long term (current) use of oral hypoglycemic drugs; Z79.899 Other long term (current) drug therapy; Z87.891 Personal history of nicotine dependence
CPT/HCPCS: 93005; 99212; A9270-GY; G0463